=== PATIENT | female | born 1980 | race African-American/Black ===

== ENCOUNTER 2016-12-13 19:35 | Emergency (ER) ==
[2016-12-13] MEDS ORDERED: MARCAINE 0.5% PF INJ ONE (20:21)
[2016-12-13] MEDS ORDERED: MARCAINE 0.5% PF ONE (20:22)
--- NOTE | 2016-12-13 20:27 | PROVIDER DOCUMENTATION ---
HPI-EENT General - General Source: patient - History of Present Illness-EENT General EENT Location: reports: dental Quality of Pain: reports: aching Onset/Duration: reports: other (3 weeks) Timing: reports: still present Associated Symptoms: reports: tooth pain Locality of Occurance: Home Similar Symptoms Previously?: Yes Recently seen or treated by another doctor?: Yes <Kacie Tilley - Last Filed: 12/13/16 20:36> <Pito Mittal - Last Filed: 12/13/16 20:41> - General Chief Complaint: General Adult Stated Complaint: ANXIETY Time Seen by Provider: 12/13/16 20:15 Allergies/Adverse Reactions: Patient Allergies Allergy/AdvReac Type Severity Reaction Status Date / Time Penicillins Allergy Intermediate SWELLING Verified 07/05/16 10:18 Home Medications: Home Medication List Medication Instructions Recorded Confirmed Last Taken Type Cephalexin [Keflex] 500 mg PO TID #20 capsule 12/13/16 Unknown Rx Hydrocodone/Acetaminophen [[place] 1 each PO Q4-6H PRN PRN #20 tablet 12/13/16 Unknown Rx 5-325 Tablet] Promethazine [Phenergan] 25 mg PO Q6H PRN PRN #20 tablet 12/13/16 Unknown Rx - History of Present Illness-EENT General Nature of Presenting Problem: 36 year old F presents to the ED with a cc of left lower dental pain radiating to left ear. Pt states that she was seen at a walk in clinic 3 weeks ago and was prescribed an antibiotic with no relief. PT states that she has been taking Goody Powders with caffeine. Pt states that she has been feeling short of breath , like she is having an anxiety attack. (Kacie Tilley) Review of Systems - Adult - REVIEW OF SYSTEMS - ADULT Constitutional: denies: chills, fever Eyes: reports: no symptoms reported Ears, Nose, Mouth & Throat: reports: ear pain, mouth/dental pain. denies: throat pain Cardiovascular: reports: no symptoms reported Respiratory: reports: no symptoms reported Gastrointestinal: reports: no symptoms reported Genitourinary: reports: no symptoms reported Musculoskeletal: reports: no symptoms reported Integumentary: reports: no symptoms reported Neurological: reports: no symptoms reported Psychiatric: reports: anxiety. denies: panic attacks, suicidal thoughts Endocrine: reports: no symptoms reported Hematologic/Lymphatic: reports: no symptoms reported Allergic/Immunologic: reports: no symptoms reported All Other Systems: Reviewed and Negative <Kacie Tilley - Last Filed: 12/13/16 20:36> Past History - Adult - PAST MEDICAL HISTORY-ADULT Review of Records: reports: Nursing Assessment Review, Medications Reviewed Major Childhood Illnesses: reports: denies history Cardiovascular: reports: denies history Respiratory: reports: denies history Gastrointestinal: reports: denies history Obstetrical/Gynecological: reports: denies history Genitourinary: reports: denies history Musculoskeletal: reports: denies history Neurological: reports: denies history Psychiatric: reports: denies history Endocrine/Immune: reports: anemia Other Conditions: reports: denies history - PRIOR SURGERIES/PROCEDURES Surgical/Procedure History: reports: none - PRIOR HOSPITALIZATIONS Prior Hospitalizations: reports: for other non-related - IMMUNIZATION STATUS Childhood Immunizations: See Nurse Assessment Flu Vaccine: See Nurse Assessment - FAMILY HISTORY Family History: reviewed, not pertinent - SOCIAL HISTORY Smoking: non-smoker Substance Use: none/never Alcohol Use Frequency: never <Kacie Tilley - Last Filed: 12/13/16 20:36> Physical Exam- EENT - Physical Exam EENT Initial Vital Signs Reviewed: Yes General Appearance: appears well, alert, no apparent distress Ear Exam: left ear: auricle normal, canal normal, TM normal Throat Exam: dental tenderness (fractured left lower rear most molar with mild gum swelling) Respiratory: chest non-tender, lungs clear, normal breath sounds Cardiovascular: normal peripheral pulses, regular rate, rhythm, no edema Abdominal Exam: non tender, soft Integumentary: normal color, normal turgor, warm/dry Psych/Mental Status: normal mood/affect, normal thought content, normal thought process, oriented x 3 <Kacie Tilley - Last Filed: 12/13/16 20:36> Progress <Kacie Tilley - Last Filed: 12/13/16 20:36> <Pito Mittal - Last Filed: 12/13/16 20:41> - PLAN OF CARE/RESULTS Progress/Plan/Lab Results: plan of care: dental block, medications Orders Category Date Time Status Bupivacaine Pf 0.5% [Marcaine 0.5% Pf] Med 12/13/16 20:22 Discontinued 10 ml .ROUTE .STK-MED ONE Bupivacaine Pf 0.5% [Marcaine 0.5% Pf] Med 12/13/16 20:21 Discontinued 10 ml INJ NOW ONE CephALEXIN [Keflex] Med 12/13/16 20:39 Once 500 mg PO NOW ONE Hydrocodone/APAP 5 mg/325 mg [[place]-5] Med 12/13/16 20:38 Once 1 each PO NOW ONE Promethazine [Phenergan] Med 12/13/16 20:38 Once 25 mg PO NOW ONE Vital Signs - 24 hr 12/13/16 19:51 Temperature 97.7 F Pulse Rate 83 Respiratory 18 Rate Blood Pressure 140/84 O2 Sat by Pulse 100 Oximetry Pt given results and will be d/c home w/ rx to follow up with PCP. Pt verbally understood instructions. PT remained clinically stable throughout the course of the ED stay and will return if symptoms worsen. (Kacie Tilley) Procedures - ENT PROCEDURES Nerve Block: Dental Anesthetic: 0.5%, Bupivicaine/Marcaine Procedure Comment: pt tolerated well. <Kacie Tilley - Last Filed: 12/13/16 20:36> Departure <Kacie Tilley - Last Filed: 12/13/16 20:36> - Departure Time of Disposition Order: 20:40 Certified Medical Emergency: Emergent <Pito Mittal - Last Filed: 12/13/16 20:41> - Departure DIAGNOSIS: Dental abscess Disposition: HOME 01 Condition: Good Additional Instructions: see a dentist as soon as possible! ED Follow Up Instructions: You have been treated by a care provider in the Emergency Department. These instructions are being provided to you so you can have an understanding of how to care for yourself upon discharge. Upon discharge from the Emergency Department, you are responsible for making arrangements for follow-up care by a physician of your choice. Take all prescribed medications as directed. Return to the Emergency Department immediately for any new or worsening symptoms. You may call the Physician Referral phone number at [phone] to obtain a list of Physicians who are taking new patients. Prescriptions: Cephalexin [Keflex] 500 mg PO TID #20 capsule Hydrocodone/Acetaminophen [[place] 5-325 Tablet] 1 each PO Q4-6H PRN PRN #20 tablet PRN Reason: Pain Promethazine [Phenergan] 25 mg PO Q6H PRN PRN #20 tablet PRN Reason: Nausea And Vomiting Referrals: Jeff Guajardo [Primary Care Provider] - Attestation - Scribe Verification/Attestation Scribe:: Kacie Tilley Acting as Scribe for:: Pito Mittal Scribe documention review:: This chart was documented by a scribe and accurately reflects the service the provider performed and the decisions made by the provider. <Kacie Tilley - Last Filed: 12/13/16 20:36> Physician Attestation - Physician Attestation I, the provider, attest to the following statement:: Pito Mittal Physician documentation Attestation:: This documentation recorded by the scribe accurately reflects the service I personally performed and the decisions made by me. <Kacie Tilley - Last Filed: 12/13/16 20:36>
[2016-12-13] MEDS ORDERED: NORCO-5 PO ONE (20:38)
[2016-12-13] MEDS ORDERED: PHENERGAN PO ONE (20:38)
[2016-12-13] MEDS ORDERED: KEFLEX PO ONE (20:39)
[2016-12-13 20:57] VITALS: BP 153/96
== END 2016-12-13 21:00 | disposition home or self-care (01) ==
LOC: P.ED 19:35
DX: K04.7 Periapical abscess without sinus (principal); K08.89 Other specified disorders of teeth and supporting structures; H92.02 Otalgia, left ear
CPT/HCPCS: 99282; S0020

== ENCOUNTER 2019-08-22 01:05 | Inpatient (IN) ==
[2019-08-22 01:32] LABS: URINE SOURCE VOIDED
[2019-08-22 01:42] LABS: BILIRUBIN URINE NEGATIVE (NEGATIVE); BLOOD URINE NEGATIVE (NEGATIVE); CLARITY CLEAR (CLEAR); COLOR YELLOW; GLUCOSE URINE NEGATIVE (NEGATIVE); KETONE URINE TRACE mg/dL (NEGATIVE); LEUKOCYTES URINE NEGATIVE (NEGATIVE); NITRITE URINE NEGATIVE (NEGATIVE); PH URINE 6.5; PROTEIN URINE 30 mg/dL (NEGATIVE); SP GRAVITY URINE >= 1.030
[2019-08-22 01:51] LABS: UR AMPHETAMINES QUAL NONE DETECTED (NONE DETECT); UR BARBITUATES QUAL NONE DETECTED (NONE DETECT); UR BENZODIAZEPIN QUAL NONE DETECTED (NONE DETECT); UR CANNABINOIDS QUAL NONE DETECTED (NONE DETECT); UR COCAINE QUAL NONE DETECTED (NONE DETECT); UR METHADONE QUAL NONE DETECTED (NONE DETECT); UR OPIATES QUAL NONE DETECTED (NONE DETECT); UR OXYCODONE QUAL NONE DETECTED (NONE DETECT); UR PCP QUAL NONE DETECTED (NONE DETECT)
[2019-08-22] MEDS ORDERED: TYLENOL PO PRN (02:05)
[2019-08-22] MEDS ORDERED: ZOFRAN IV PRN (02:05)
[2019-08-22] MEDS ORDERED: REGLAN PO PRN (02:05)
[2019-08-22] MEDS ORDERED: PEPCID PO PRN ×2 (02:05)
[2019-08-22] MEDS ORDERED: PEPCID IV PRN (02:05)
[2019-08-22] MEDS ORDERED: STADOL IV PRN (02:05)
[2019-08-22] MEDS ORDERED: XYLOCAINE-MPF 1% INJ PRN ×2 (02:09→14:16)
[2019-08-22] MEDS ORDERED: MINERAL OIL TOP PRN (02:09)
[2019-08-22] MEDS ORDERED: PITOCIN 30 UNITS/NS 30 UNIT/500 ML IV.SOLN IV SCH ×2 (02:15→14:30)
[2019-08-22] MEDS ORDERED: SODIUM CHLORIDE 0.9% INJ SCH (02:15)
[2019-08-22] MEDS: CLINDAMYCIN 900 MG/D5W 900 MG/50 ML IVPB IV SCH ×2 (02:48→11:00)
[2019-08-22] MEDS: LR 1,000 ML IV SCH ×2 (02:48→06:08)
[2019-08-22 02:56] LABS: BASO# 0.03 X1000 (0.0-0.2); BASO% 0.3 % (0.0-0.8); EOS# 0.08 X1000 (0.0-0.7); EOS% 0.8 % (0.0-10.0); HEMATOCRIT 31.7 % (37.0-47.0); HEMOGLOBIN 9.6 g/dL (12.0-16.0); IMM GRAN# 0.03 X1000 (0.0-0.04); IMM GRAN% 0.3 % (0.0-0.5); LYMPH# 1.53 X1000 (1.2-3.4); LYMPH% 14.8 % (20.5-51.1); MCH 26.2 PG (27-31); MCHC 30.3 g/dL (33-37); MCV 86.6 FL (81-99); MONO# 0.92 X1000 (0.11-0.59); MONO% 8.9 % (1.7-9.3); MPV 11.1 FL (7.4-10.4); NEUT# 7.78 X1000 (1.4-6.5); NEUT% 74.9 % (42.2-75.2); PLT 320 X1000 (130-400); RBC 3.66 XMIL (4.2-5.4); RDW 15.3 % (11.5-14.5); WBC 10.37 X1000 (4.8-10.8)
[2019-08-22] MEDS ORDERED: FENTANYL IV ONE (09:30)
[2019-08-22] MEDS ORDERED: FENTANYL INJ ONE (09:30)
[2019-08-22] MEDS ORDERED: FENTANYL-BUPIV-NS 2 MCG-0.1% 250 ML EPIDURAL SCH (10:00)
[2019-08-22] MEDS ORDERED: FENTANYL ONE (12:44)
[2019-08-22] MEDS ORDERED: NAROPIN 0.2% ONE (12:46)
[2019-08-22] MEDS ORDERED: PITOCIN IM PRN (14:16)
[2019-08-22] MEDS ORDERED: PERI MEDS (DERMOPLAST/NUPERCAINAL/TUCKS) MISC PRN (14:16)
[2019-08-22] MEDS ORDERED: BENADRYL IV PRN (14:16)
[2019-08-22] MEDS ORDERED: HYDROXYZINE IM PRN (14:16)
[2019-08-22] MEDS ORDERED: MOTRIN PO PRN (14:16)
[2019-08-22] MEDS ORDERED: BENADRYL PO PRN (14:16)
[2019-08-22] MEDS ORDERED: NORCO-5 PO PRN (14:16)
[2019-08-22] MEDS ORDERED: BOOSTRIX VACCINE IM ONE (14:16)
[2019-08-22] MEDS ORDERED: MINERAL OIL PO PRN (14:16)
[2019-08-22] MEDS ORDERED: M-M-R II VACCINE SUBQ ONE (14:16)
[2019-08-22] MEDS ORDERED: AMBIEN PO PRN (14:16)
[2019-08-22] MEDS ORDERED: NORCO-10 PO PRN (14:16)
[2019-08-22] MEDS ORDERED: CYTOTEC PO PRN (14:16)
[2019-08-22] MEDS ORDERED: PITOCIN 20 UNITS/NS 20 UNITS/1,000 ML IV.SOLN IV SCH (14:30)
--- NOTE | 2019-08-22 20:37 | OPERATIVE NOTE ---
PROCEDURE DATE: 08/22/2019 PROCEDURE: Vaginal delivery. DESCRIPTION OF PROCEDURE: The patient progressed to complete and pushing. She had spontaneous vaginal delivery of a male , 8 pounds 6 ounces, with scores of 9 and 10 at 1359 hours on 08/22/2019, over a second-degree midline episiotomy. Nuchal cord x1 was reduced easily over the perineum. Cord blood sample was obtained. Placenta delivered intact with 3-vessel cord. Second-degree midline episiotomy repaired with 3-0 chromic. ESTIMATED BLOOD LOSS: 200 mL ANESTHESIA: Epidural. COUNTS: All counts were correct. cc: Shun Montero III, MD
[2019-08-22] MEDS: PERICOLACE PO SCH (21:01)
[2019-08-23] MEDS: ATARAX PO PRN ×2 (04:39→12:00)
[2019-08-23] MEDS: CLINDAMYCIN 900 MG/D5W 900 MG/50 ML IVPB IV SCH (05:42)
[2019-08-23 06:16] LABS: BASO# 0.03 X1000 (0.0-0.2); BASO% 0.2 % (0.0-0.8); EOS# 0.11 X1000 (0.0-0.7); EOS% 0.9 % (0.0-10.0); HEMATOCRIT 31.7 % (37.0-47.0); HEMOGLOBIN 9.6 g/dL (12.0-16.0); IMM GRAN# 0.05 X1000 (0.0-0.04); IMM GRAN% 0.4 % (0.0-0.5); LYMPH# 2.05 X1000 (1.2-3.4); MCH 26.3 PG (27-31); MCHC 30.3 g/dL (33-37); MCV 86.8 FL (81-99); MONO# 0.72 X1000 (0.11-0.59); MPV 11.6 FL (7.4-10.4); NEUT% 75.5 % (42.2-75.2); PLT 304 X1000 (130-400); RBC 3.65 XMIL (4.2-5.4); RDW 15.3 % (11.5-14.5); WBC 12.06 X1000 (4.8-10.8)
[2019-08-23] MEDS ORDERED: FERROUS SULFATE PO SCH (09:00)
[2019-08-23] MEDS: MOTRIN LIQUID PO PRN (19:18)
[2019-08-23] MEDS: PERICOLACE PO SCH ×2 (19:18→21:23)
[2019-08-23] MEDS ORDERED: MYLICON PO PRN (23:43)
[2019-08-24 04:17] VITALS: BP 132/68
[2019-08-24] MEDS: MOTRIN LIQUID PO PRN (06:16)
--- NOTE | 2019-08-24 08:16 | OB/GYN PROGRESS NOTE ---
Progress Note OB - . OB Progress Note: Vital Signs - 24 hr 08/23/19 11:40 08/23/19 21:07 08/24/19 00:00 Temperature 97.8 F 97.6 F 98.2 F Pulse Rate 88 77 78 Respiratory Rate 20 18 16 Blood Pressure 131/66 133/75 136/76 O2 Sat by Pulse Oximetry 100 98 98 08/24/19 04:00 Temperature 97.1 F L Pulse Rate 72 Respiratory Rate 16 Blood Pressure 132/68 O2 Sat by Pulse Oximetry 99 S. Patient resting in bed. She is ambulating and urinating well. She is tolerating a regular diet. She has mild pain. She has light bleeding. Discharge instructions given. O. Vitals WNL HEENT: WNL Chest: CTAB Heart RRR, no M/R/G Abdomen: soft, Uterus below the umbilicus Ext: No edema. A/P 38yo s/p PPD#1. Routine care. Discharge home today.
--- NOTE | 2019-08-24 23:19 | DISCHARGE SUMMARY ---
ADMISSION DATE: 08/22/2019 DISCHARGE DATE: 08/24/2019 The patient is a 38-year-old G4, P4, who presented at 38 weeks and 4 days in spontaneous labor. She delivered a baby that weighed 8 pounds 6 ounces and had Apgars of 9 and 10. She did well and is ready for discharge today. The patient was advised to have pelvic rest for 6 weeks, do no exercise, avoid being under water for 2 weeks. She was told not to place anything in the vagina for 6 weeks. She has a follow-up scheduled with [*] already. She was given precautions for home and prescriptions, which are on her med rec discharge form. cc: DO Shun Garcia III, MD
== END 2019-08-24 09:49 | disposition home or self-care (01) | DRG 807 ==
LOC: OPLD 01:05 → EDSTATUS 01:05 → LD 01:07
PROVIDERS: ADMIT Obstetrics & Gynecology; ATTEND Obstetrics & Gynecology